=== PATIENT | male | born 1945 | race Hispanic/Latino ===

== ENCOUNTER 2017-02-19 00:30 | Observation (INO) | payer MEDICARE, BC ==
[2017-02-19 00:43] VITALS: BMI 28.8
[2017-02-19 00:47] VITALS: TEMP 98.6
--- NOTE | 2017-02-19 00:51 | ED PDOC ---
Arrival/HPI - General Historian: Patient - History of Present Illness Time/Duration: Prior to Arrival Context: Home <Konrad Molina - Last Filed: 02/19/17 02:03> <Supa Redd - Last Filed: 02/19/17 05:44> <LashaunjackSalima A - Last Filed: 02/19/17 08:44> - General Chief Complaint: Headache Time Seen by Provider: 02/19/17 00:50 - History of Present Illness Narrative History of Present Illness (Text): 02/19/17 02:03 This 71 yo male with pmh dm, coronary stents, on Plavix, is brought to this by BLS c/o head injury. Patient stated he was having some drinks at the local bar. He said he went home, when he suddenly fell down on the floor. He is not sure if he tripped or slipped on the floor. He said he hit his head, and immediately got up. He then noticed bleeding from head. Last tetanus is UKN. Denies headche, diplopia, dysarthria, dysphagia, weakness, paresthesias, n/v, or dizziness. (Konrad Molian) Past Medical History - Provider Review Nursing Documentation Reviewed: Yes - Cardiac Hx Cardiac Disorders: No Hx Pacemaker: No - Pulmonary Hx Respiratory Disorders: No - Neurological Hx Neurological Disorder: No Hx Paralysis: No - HEENT Hx HEENT Disorder: No - Renal Hx Renal Disorder: No - Endocrine/Metabolic Hx Diabetes Mellitus Type 2: Yes - Hematological/Oncological Hx Blood Disorders: No Hx Blood Transfusions: No Hx Blood Transfusion Reaction: No - Integumentary Hx Dermatological Disorder: No - Musculoskeletal/Rheumatological Hx Musculoskeletal Disorders: No - Gastrointestinal Hx Gastrointestinal Disorders: No - Genitourinary/Gynecological Hx Genitourinary Disorders: No - Psychiatric Hx Psychophysiologic Disorder: No Hx Emotional Abuse: No Hx Physical Abuse: No Hx Substance Use: No - Surgical History Hx Coronary Stent: Yes (x2 2013) - Anesthesia Hx Anesthesia Reactions: No Hx Malignant Hyperthermia: No - Suicidal Assessment Feels Threatened In Home Enviroment: No <Konrad Molina - Last Filed: 02/19/17 02:03> Family/Social History - Physician Review Nursing Documentation Reviewed: Yes Family/Social History: No Known Family HX Smoking Status: Former Smoker Hx Alcohol Use: Yes (beer) Frequency of alcohol use: Daily Hx Substance Use: No <Konrad Molina - Last Filed: 02/19/17 02:03> Allergies/Home Meds <Konrad Molina - Last Filed: 02/19/17 02:03> <Supa Redd - Last Filed: 02/19/17 05:44> <Salima Bain - Last Filed: 02/19/17 08:44> Allergies/Adverse Reactions: Allergies Penicillins Allergy (Verified 02/19/17 00:58) ANAPHYLAXIS Home Medications: Home Meds Medication Instructions Recorded Confirmed Metformin HCl [Metformin] 1,000 mg PO BID 01/30/14 05/13/16 Metoprolol Tartrate [Lopressor] 12.5 mg PO BID 01/30/14 05/13/16 Ramipril [Altace] 10 mg PO QAM 01/30/14 05/13/16 Atorvastatin [Lipitor] 40 mg PO DAILY 12/29/14 05/13/16 Clopidogrel [Plavix] 75 mg PO DAILY 12/29/14 05/13/16 Aspirin [Adult Low Dose Aspirin EC] 81 mg PO DAILY 05/13/16 05/13/16 Glyburide [Glyburide] 5 mg PO BID 05/13/16 05/13/16 Review of Systems - Review of Systems Systems not reviewed;Unavailable: Intoxicated Constitutional: Normal. absent: Fatigue, Weight Change, Fevers Eyes: Normal. absent: Vision Changes, Photophobia, Eye Pain ENT: Normal. absent: Hearing Changes, Sore Throat Respiratory: Normal. absent: SOB, Cough Cardiovascular: Normal. absent: Chest Pain, Palpitations Gastrointestinal: Normal. absent: Abdominal Pain, Nausea, Vomiting Genitourinary Male: Normal. absent: Dysuria Musculoskeletal: Normal. absent: Arthralgias, Back Pain Skin: Laceration (scalp laceration) Neurological: Normal Endocrine: Normal Hemo/Lymphatic: Normal Psychiatric: Normal <Konrad Molina - Last Filed: 02/19/17 02:03> Physical Exam Temperature: Afebrile Blood Pressure: Hypertensive Pulse: Regular Respiratory Rate: Normal Appearance: Positive for: Well-Appearing, Non-Toxic, Comfortable Pain Distress: None Mental Status: Positive for: Alert and Oriented X 3 - Systems Exam Head: Present: Atraumatic, Normocephalic, Laceration (right posterior scalp laceration, approx. 5 cm), Other (no raccoon sign. No catalan sign) Pupils: Present: PERRL, Other (no hyphema) Extroacular Muscles: Present: EOMI. No: Entrapment Conjunctiva: Present: Normal Ears: Present: Normal, NORMAL TM, Normal Canal. No: Erythema, TM Bulging, Fluid , TM Perf Mouth: Present: Moist Mucous Membranes, Normal Tounge, Normal Teeth. No: Drooling Pharnyx: Present: Normal. No: ERYTHEMA, EXUDATE, TONSILS ENLARGED Nose (External): Present: Atraumatic. No: Abrasion Nose (Internal): Present: Normal Inspection. No: No Active Bleeding, Septal Hematoma, Epistaxis Neck: Present: Normal Range of Motion, Trachea Midline. No: Meningeal Signs, MIDLINE TENDERNESS, Paraspinal Tenderness, Lymphadenopathy Respiratory/Chest: Present: Clear to Auscultation, Good Air Exchange. No: Respiratory Distress, Accessory Muscle Use, Wheezes, Decreased Breath Sounds, Rales, Retracting, Rhonchi, Tender to Palpation Cardiovascular: Present: Regular Rate and Rhythm, Normal S1, S2. No: Murmurs Abdomen: Present: Normal Bowel Sounds. No: Tenderness, Distention, Peritoneal Signs, Rebound, Guarding Back: Present: Normal Inspection. No: CVA Tenderness, Midline Tenderness, Paraspinal Tenderness, Pain with Leg Raise Upper Extremity: Present: Normal Inspection, Normal ROM, NORMAL PULSES, Neurovascularly Intact, Capillary Refill < 2s. No: Cyanosis, Edema Lower Extremity: Present: Normal Inspection, NORMAL PULSES, Normal ROM, Neurovascularly Intact, Capillary Refill < 2 s. No: Edema, CALF TENDERNESS Neurological: Present: GCS=15, CN II-XII Intact, Speech Normal, Motor Func Grossly Intact, Normal Sensory Function, Normal Cerebellar Funct, Norm Deep Tendon Reflexes, Memory Normal Skin: Present: Warm, Dry, Normal Color. No: Rashes Psychiatric: Present: Alert, Oriented x 3 <Konrad Molina - Last Filed: 02/19/17 02:03> ED OBSERVATION Date of observation admission: 02/19/17 Time of observation admission: 01:04 <Konrad Molina - Last Filed: 02/19/17 02:03> <Supa Redd - Last Filed: 02/19/17 05:44> Discharge: Yes <Salima Bain - Last Filed: 02/19/17 08:44> - Observation admission statement Patient is being placed in observation because:: Head injury; alcohol intoxication (Molina,Nahim P) - Goals of Observation Goals of observation are:: Labs, ct scan, monitor, repeat ct scan of head in 6 hours (Konrad Molina P) - Progress Note Progress Note: 02/19/17 01:04 CT Head shows: Brain: No evidence of acute intracranial hemorrhage, extraxial fluid or midline shift. Mild prominence of the cerebral sulci and ventricles. Cerebellum atrophic; otherwise, posterior fossa structures within normal limits. Ventricles: See above. Bones/joints: Unremarkable. No acute fracture. Soft tissues: Mild right posterior parietal scalp swelling/edema with laceration. Sinuses: Unremarkable as visualized. No acute sinusitis. Mastoid air cells: Unremarkable as visualized. No mastoid effusion. IMPRESSION: 1. No evidence of acute intracranial hemorrhage, extraxial fluid or midline shift. 2. Mild cerebral atrophy. 3. Mild right posterior parietal scalp swelling/edema with laceration. 02/19/17 03:04 Pt resting comfortably, in no acute distress. (Supa Redd) 02/19/17 07:00 Patient endorsed to me by Dr. Redd. Patient presented intoxicated. Head CT was negative, however, due to anti-coagulation medication repeat CT is pending 02/19/17 08:[address] head negative. Patient is clinically sober. Patient is AAOx3 and ambulating around the ED. He is tolerating po. He has no complaints. Will dc to follow-up with PMD. Instructed to decrease alcohol use 02/19/17 08:43 (Salima Bain) - PA / [employer]ED[employer] / Resident Statement / has reviewed & agrees with the documentation as recorded. / has examined the patient and agrees with the treatment plan. <Supa Redd - Last Filed: 02/19/17 05:44> Disposition/Present on Arrival - Present on Arrival History of DVT/PE: No History of Uncontrolled Diabetes: No Urinary Catheter: No History of Decub. Ulcer: No History Surgical Site Infection Following: None <Radha Molinaim P - Last Filed: 02/19/17 02:03> <Supa Redd - Last Filed: 02/19/17 05:44> - Present on Arrival Any Indicators Present on Arrival: No - Disposition Have Diagnosis and Disposition been Completed?: Yes Disposition Time: 07:00 Patient Plan: Discharge <Salima Bain - Last Filed: 02/19/17 08:44> - Disposition Diagnosis: Alcohol abuse, Fall, Head trauma Disposition: HOME/ ROUTINE Condition: GOOD
[2017-02-19] MEDS ORDERED: TDAP Vaccine 0.5 mL Syr IM ONE (01:01)
[2017-02-19 01:25] LABS: ADD MANUAL DIFF? NO
[2017-02-19 01:31] LABS: BASO # 0.01 K/mm3 (0.0-2.0); BASO % 0.1 % (0.0-3.0); EOS # 0.1 (0.0-0.7); EOS % 1.8 % (1.5-5.0); GRAN # 4.17 (1.4-6.5); GRAN % 58.9 % (50.0-68.0); HEMATOCRIT 41.8 % (42.0-52.0); LYMPH # 2.1 (1.2-3.4); LYMPH % 29.8 % (22.0-35.0); MEAN CELL VOLUME 88.7 fL (80.0-105.0); MEAN CORPUSCULAR HEMOGLOBIN 31.4 pg (25.0-35.0); MEAN CORPUSCULAR HGB CONC 35.4 g/dl (31.0-37.0); MEAN PLATELET VOLUME 9.6 fl (7.0-11.0); MONO # 0.7 (0.1-0.6); MONO % 9.4 % (1.0-6.0); PLATELET COUNT 198 10^3/uL (120.0-450.0); RED CELL DISTRIBUTION WIDTH 12.9 % (11.5-14.5); WHITE BLOOD COUNT 7.1 10^3/ul (4.5-11.0)
[2017-02-19 01:41] LABS: INR 0.97 (0.93-1.08); PARTIAL THROMBOPLASTIN TIME 26.9 Seconds (23.7-30.8)
[2017-02-19 02:01] LABS: ALB/GLOB RATIO 1.2 (1.1-1.8); ALKALINE PHOSPHATASE 73 U/L (38-133); ALT/SGPT 42 U/L (7-56); AST/SGOT 34 U/L (15-59); BILIRUBIN,TOTAL 0.9 mg/dL (0.2-1.3); BLOOD UREA NITROGEN 10 mg/dL (7-21); CALCIUM 9.1 mg/dL (8.4-10.5); CARBON DIOXIDE 21 mmol/L (21-33); CHLORIDE 101 mmol/L (98-107); GFR AFRICAN-AMERICAN > 60; GLUCOSE,RANDOM 131 mg/dL (70-110); POTASSIUM 4.3 mmol/L (3.6-5.0); SODIUM 135 mmol/L (132-148); TOTAL PROTEIN 7.5 g/dL (5.8-8.3)
[2017-02-19 05:13] VITALS: O2SAT 99
[2017-02-19 07:45] VITALS: BP 122/74; PULSE 90; RESP 18
--- NOTE | 2017-02-19 08:11 | CT ---
PROCEDURE: CT HEAD WITHOUT CONTRAST. HISTORY: pain s/p trauma COMPARISON: None available. TECHNIQUE: Axial computed tomography images were obtained through the head/brain without intravenous contrast. Radiation dose: Total exam DLP = 767 mGy-cm. This CT exam was performed using one or more of the following dose reduction techniques: Automated exposure control, adjustment of the mA and/or kV according to patient size, and/or use of iterative reconstruction technique. FINDINGS: HEMORRHAGE: No intracranial hemorrhage. BRAIN: No mass effect or edema. No atrophy or chronic microvascular ischemic changes. VENTRICLES: Unremarkable. No hydrocephalus. CALVARIUM: Focal scalp hematoma right parietal region. No associated fracture PARANASAL SINUSES: Unremarkable as visualized. No significant inflammatory changes. MASTOID AIR CELLS: Unremarkable as visualized. No inflammatory changes. OTHER FINDINGS: The report concurs with the preliminary [facility] report IMPRESSION: No acute findings
--- NOTE | 2017-02-19 08:17 | CT ---
PROCEDURE: CT HEAD WITHOUT CONTRAST. HISTORY: head injury with plavix use COMPARISON: 02/19/2017 at 2:08 a.m. TECHNIQUE: Axial computed tomography images were obtained through the head/brain without intravenous contrast. Radiation dose: Total exam DLP = 677.45 mGy-cm. This CT exam was performed using one or more of the following dose reduction techniques: Automated exposure control, adjustment of the mA and/or kV according to patient size, and/or use of iterative reconstruction technique. FINDINGS: HEMORRHAGE: No intracranial hemorrhage. BRAIN: No mass effect or edema. Minimal diffuse age-appropriate cerebral atrophy. VENTRICLES: Unremarkable. No hydrocephalus. CALVARIUM: No fracture. Right high parietal small scalp hematoma with probable laceration. PARANASAL SINUSES: Unremarkable as visualized. No significant inflammatory changes. MASTOID AIR CELLS: Unremarkable as visualized. No inflammatory changes. OTHER FINDINGS: None. IMPRESSION: No intracranial hemorrhage. High right parietal scalp hematoma. Otherwise unremarkable.
== END 2017-02-19 08:21 | disposition home or self-care (01) ==
LOC: ED 00:30 → EROBSV 01:26
PROVIDERS: ADMIT Emergency Medicine; ATTEND Emergency Medicine
DX: F10.10 Alcohol abuse, uncomplicated (principal); Y90.7 Blood alcohol level of 200-239 mg/100 ml; S09.90XA Unspecified injury of head, initial encounter; W19.XXXA Unspecified fall, initial encounter; E11.9 Type 2 diabetes mellitus without complications; Z23 Encounter for immunization; Z87.891 Personal history of nicotine dependence
CPT/HCPCS: 70450; 80053; 85025; 85610; 85730; 90471; 90715; 99285; G0378; G0480

== ENCOUNTER 2017-02-23 13:04 | Emergency (ER) | payer MEDICARE, BC ==
[2017-02-23 13:18] VITALS: BMI 29.2
[2017-02-23 13:29] VITALS: BP 140/80; PULSE 74; RESP 19; TEMP 98; O2SAT 98
--- NOTE | 2017-02-23 13:29 | ED PDOC ---
Arrival/HPI - General Historian: Patient - General Time Seen by Provider: 02/23/17 13:12 - History of Present Illness Narrative History of Present Illness (Text): 02/23/17 13:14 71 y/o male, pmh including htn/hyperlipidemia/dm, penicillin allergy, c/o stich removal from the scalp x 6-7 days. Pt. stated that the wound healing well and dry, didn't clean it at home for the past 5-6 days, no fever or chills, no headache or night sweat, no numbness or tingling, no other medical or psychological complaints. (Saúl Blount) Past Medical History - Provider Review Nursing Documentation Reviewed: Yes - Cardiac Hx Cardiac Disorders: No Hx Pacemaker: No - Pulmonary Hx Respiratory Disorders: No - Neurological Hx Neurological Disorder: No Hx Paralysis: No - HEENT Hx HEENT Disorder: No - Renal Hx Renal Disorder: No - Endocrine/Metabolic Hx Diabetes Mellitus Type 2: Yes - Hematological/Oncological Hx Blood Disorders: No Hx Blood Transfusions: No Hx Blood Transfusion Reaction: No - Integumentary Hx Dermatological Disorder: No - Musculoskeletal/Rheumatological Hx Musculoskeletal Disorders: No - Gastrointestinal Hx Gastrointestinal Disorders: No - Genitourinary/Gynecological Hx Genitourinary Disorders: No - Psychiatric Hx Psychophysiologic Disorder: No Hx Emotional Abuse: No Hx Physical Abuse: No Hx Substance Use: No - Surgical History Hx Coronary Stent: Yes (x2 2013) - Anesthesia Hx Anesthesia Reactions: No Hx Malignant Hyperthermia: No - Suicidal Assessment Feels Threatened In Home Enviroment: No Family/Social History - Physician Review Nursing Documentation Reviewed: Yes Family/Social History: Unknown Family HX Smoking Status: Former Smoker Hx Alcohol Use: Yes (beer) Hx Substance Use: No Allergies/Home Meds Allergies/Adverse Reactions: Allergies Penicillins Allergy (Verified 02/23/17 13:16) ANAPHYLAXIS Home Medications: Home Meds Medication Instructions Recorded Confirmed Metformin HCl [Metformin] 1,000 mg PO BID 01/30/14 02/23/17 Metoprolol Tartrate [Lopressor] 12.5 mg PO BID 01/30/14 02/23/17 Ramipril [Altace] 10 mg PO QAM 01/30/14 02/23/17 Atorvastatin [Lipitor] 40 mg PO DAILY 12/29/14 02/23/17 Clopidogrel [Plavix] 75 mg PO DAILY 12/29/14 02/23/17 Aspirin [Adult Low Dose Aspirin EC] 81 mg PO DAILY 05/13/16 02/23/17 Glyburide [Glyburide] 5 mg PO BID 05/13/16 02/23/17 Cholecalciferol [Vitamin D 1000 IU] 1,000 iu PO DAILY 02/23/17 02/23/17 Vitamin E [Vitamin E 400 Units Cap] 400 iu PO DAILY 02/23/17 02/23/17 Review of Systems - Review of Systems Constitutional: absent: Fatigue, Fevers Eyes: absent: Vision Changes ENT: absent: Hearing Changes Respiratory: absent: Cough, Sputum Cardiovascular: absent: Chest Pain Genitourinary Male: absent: Dysuria, Frequency, Hematuria, Urinary Output Changes Musculoskeletal: absent: Arthralgias, Back Pain, Neck Pain, Joint Swelling, Myalgias Skin: absent: Rash, Pruritis, Skin Lesions, Laceration, Abscess, Ulcer, Cellulitis Neurological: absent: Headache, Dizziness, Focal Weakness, Gait Changes, Speech Changes, Facial Droop, Disequilibrium, Seizure Physical Exam Vital Signs Reviewed: Yes Temperature: Afebrile Pulse: Regular Respiratory Rate: Normal Appearance: Positive for: Well-Appearing, Non-Toxic, Comfortable Pain Distress: None Mental Status: Positive for: Alert and Oriented X 3 - Systems Exam Head: Present: Atraumatic, Normocephalic Pupils: Present: PERRL Extroacular Muscles: Present: EOMI Conjunctiva: Present: Normal Mouth: Present: Moist Mucous Membranes Neck: Present: Normal Range of Motion Respiratory/Chest: Present: Clear to Auscultation, Good Air Exchange. No: Respiratory Distress, Accessory Muscle Use Cardiovascular: Present: Regular Rate and Rhythm, Normal S1, S2. No: Murmurs Abdomen: Present: Normal Bowel Sounds. No: Tenderness, Distention, Peritoneal Signs Back: Present: Normal Inspection Upper Extremity: Present: Normal Inspection. No: Cyanosis, Edema Lower Extremity: Present: Normal Inspection. No: Edema Neurological: Present: GCS=15, Speech Normal, Motor Func Grossly Intact, Gait Normal, Memory Normal Skin: Present: Warm, Dry, Normal Color, Other (lt. posterior occipital region visible cluster of dry dark red blood noted with no celluitis or streaking, after cleaning with the normal saline which visible 6 sutures with the wound gapping and the stiches are not holding the gap together with multiple sutures open. ). No: Rashes Psychiatric: Present: Alert, Oriented x 3, Normal Insight, Normal Concentration Medical Decision Making ED Course and Treatment: 02/23/17 13:31 -6 stiches removed with success due to the laceration wound is not being held together, clean with saline and betadine, will put on the antibiotic for 4-5 days for secondary healing. -there is no more sutures noted on the scalp. -Discharge home with clindamycin, clean with soap and water twice daily, apply bacitracin ointment twice daily, do not cover the cut wound at home, return to the ER for any new or worsening signs or symptoms. (Saúl Blount) I was available for consultation during PA evaluation. The chart was reviewed by me, and I agree with disposition. The documented history was done by the physician sleever. The documented physical exam was done by the physician sleever. The documented procedures were done by the physician sleever. (Gautam Khoury) - PA / SITE ACQUISITION MANAGER / Resident Statement MD/DO has reviewed & agrees with the documentation as recorded. Disposition/Present on Arrival - Present on Arrival Any Indicators Present on Arrival: No History of DVT/PE: No History of Uncontrolled Diabetes: No Urinary Catheter: No History of Decub. Ulcer: No History Surgical Site Infection Following: None - Disposition Have Diagnosis and Disposition been Completed?: Yes Disposition Time: 13:33 Patient Plan: Discharge - Disposition Diagnosis: Visit for wound check Disposition: HOME/ ROUTINE Condition: GOOD Additional Instructions: Discharge home with clindamycin, clean with soap and water twice daily, apply bacitracin ointment twice daily, do not cover the cut wound at home, return to the ER for any new or worsening signs or symptoms. Prescriptions: Bacitracin Ointment [Bacitracin] 1 appful TOP BID #15 g Clindamycin [Cleocin] 300 mg PO TID #15 cap Referrals: [facility] [place] - Follow up with primary Forms: WORK NOTE
== END 2017-02-23 13:44 | disposition home or self-care (01) ==
LOC: ED 13:04
DX: Z51.89 Encounter for other specified aftercare (principal); I10 Essential (primary) hypertension; E11.9 Type 2 diabetes mellitus without complications; E78.5 Hyperlipidemia, unspecified; Z88.0 Allergy status to penicillin